=== PATIENT | male | born 1995 | race Caucasian/White ===

== ENCOUNTER 2019-06-06 05:15 | Emergency (ER) | payer SELFPAY ==
[~2019-06-06] VITALS: Ht 200 cm; Wt 84.8 kg
[2019-06-06] MEDS ORDERED: CEPH-507 PO (05:50)
--- NOTE | 2019-06-06 05:51 | ED Cough/URI ---
General Chief Complaint: Cough/Cold/Flu Symptoms Stated Complaint: COUGH Nursing Triage Note: pt states 2 days of cough, pt has not takenany medicaiton otc Sepsis Screen: No Definite Risk History of Present Illness Date Seen by Provider: Jun 06, 2019 Time Seen by Provider: 05:30 Initial Comments Patient is here with cough for the last 48 hours intermittent fever and chills no chest pain some purulent sputum no sore throat and earache some headache no nausea vomiting diarrhea Timing/Duration: constant, week Severity/Quality: moderate Prior Episodes/Possible Cause: illness exposure Associated Symptoms: cough, fever/chills, headache, sore throat Allergies and Home Medications Patient Home Medication List Home Medication List Reviewed: Yes Review of Systems Review of Systems Constitutional: chills, fever EENTM: hoarseness, nose congestion, throat pain; No ear pain Respiratory: cough; No short of breath, No wheezing Cardiovascular: no symptoms reported Gastrointestinal: no symptoms reported Skin: no symptoms reported, rash Past Noilpwq-Tftlhb-Wqedwy Hx Past Med/Social Hx: Reviewed Nursing Past Med/Soc Hx Patient Social History Alcohol Use: Occasionally Uses Recreational Drug Use: Yes Drug of Choice: marijuana Smoking Status: Current Everyday Smoker 2nd Hand Smoke Exposure: No Recent Foreign Travel: No Contact w/Someone Who Travel: No Recent Infectious Disease Expo: No Recent Hopitalizations: No Physical Abuse: No Sexual Abuse: No Mistreated: No Fear: No Seasonal Allergies Seasonal Allergies: No Past Medical History Surgeries: No Respiratory: No Cardiac: No Neurological: No Genitourinary: No Gastrointestinal: No Musculoskeletal: No Endocrine: No HEENT: No Cancer: No Psychosocial: No Integumentary: No Blood Disorders: No Physical Exam Vital Signs - First Documented 06/06/19 05:25 Temp 36.3 Pulse 88 Resp 16 B/P (MAP) 115/80 (92) Capillary Refill : Less Than 3 Seconds Height: '" Weight: lbs. oz. kg; 21.00 BMI Method: General Appearance: WD/WN, no apparent distress HEENT: PERRL/EOMI, TMs normal, pharynx normal Neck: non-tender, normal inspection Respiratory: lungs clear, normal breath sounds, no respiratory distress Cardiovascular: regular rate, rhythm, no murmur Neurologic/Psychiatric: normal mood/affect, oriented x 3 Progress/Results/Core Measures Suspected Sepsis Recent Fever Within 48 Hours: No Infection Criteria Present: None New/Unexplained Altered Menta: No Sepsis Screen: No Definite Risk SIRS Temperature: Pulse: 88 Respiratory Rate: 16 Blood Pressure 115 /80 Mean: 92 Results/Orders Vital Signs/I&O 06/06/19 05:25 Temp 36.3 Pulse 88 Resp 16 B/P (MAP) 115/80 (92) Capillary Refill : Less Than 3 Seconds Blood Pressure Mean: 92 POS Departure Impression Primary Impression: Upper respiratory infection Qualified Codes: J06.9 - Acute upper respiratory infection, unspecified Disposition: HOME, SELF-CARE Condition: Stable Departure-Patient Inst. Referrals: NO,LOCAL PHYSICIAN (PCP) Primary Care Physician Patient Instructions: Bacterial Upper Respiratory Infection, Adult (DC) Scripts Cephalexin (Keflex) 500 Mg Capsule 500 MG PO QID, #40 CAP Prov: JONATHAN LAZO JR, MD 06/06/19 Work/School Note: Family Work Note Patient Received Medical Care In the Em ergency Department On: Jun 06, 2019 Patient Will Be Able to Return to Work/School On: Jun 07, 2019 Patient Restrictions: Off 24 hours JONATHAN LAZO JR, MD Jun 06, 2019 05:51 POS
[2019-06-06 05:53] VITALS: BP 115/80
--- OUTSIDE RECORDS SUMMARY | 2019-07-01 17:39 | XMS REPORT | Continuity of Care Document ---
Author Organization Unknown Address Unknown Phone Unavailable Allergies There is no data. Medications There is no data. Problems There is no data. Procedures There is no data. Results There is no data. Encounters ACCT No. Visit Date/Time Discharge Status Pt. Type Provider Facility Loc./Unit Complaint [id number] 04/27/2019 11:15:00 04/27/2019 23:59: 59 [facility] [id number] 06/06/2019 05:19:00 019 05:53:00 DIS Emergency CLIFTON EGAN, JONATHAN Silva [facility] ER FS COUGH
== END 2019-06-06 05:53 | disposition home or self-care (01) ==
LOC: ER FS 05:19
DX: J06.9 Acute upper respiratory infection, unspecified (principal); F17.200 Nicotine dependence, unspecified, uncomplicated
CPT/HCPCS: 99282

== ENCOUNTER 2019-07-24 05:25 | Emergency (ER) | payer SELFPAY ==
[~2019-07-24] VITALS: Ht 204.2 cm; Wt 77.9 kg
[~2019-07-24 05:25] MED LIST: CEPH-507 PO
--- NOTE | 2019-07-24 05:57 | ED Cough/URI ---
General Chief Complaint: Cough/Cold/Flu Symptoms Stated Complaint: SINUS PROBLEMS Nursing Triage Note: Patient states that he has a lot of sinus drainage and believes he has a sinus infection. Patient reports having a productive cough. He states that his mucus is green in color. Patient did have some episodes of vomiting last night. Sepsis Screen: No Definite Risk Source: patient Exam Limitations: no limitations History of Present Illness Date Seen by Provider: Jul 24, 2019 Time Seen by Provider: 05:15 Initial Comments 23 yr old male presents with URI cough coryza for the past two days. Pt had also had NV but was medically stable on exam. No obvious fever and no muscle aches. Pt has no CV PUL GI or Renal dx. Pt gave informed consent for eval and asked for a work release for today. Timing/Duration: yesterday Severity/Quality: moderate, productive cough, sputum Prior Episodes/Possible Cause: occasional episodes, illness exposure, smoke exposure Modifying Factors: Improves With Activity, Improves With Coughing Associated Symptoms: cough, facial pain, sore throat Allergies and Home Medications Allergies Coded Allergies: No Known Drug Allergies (Unverified , 07/24/19) Home Medications Cephalexin 500 Mg Capsule, 500 MG PO QID Prescribed by: JONATHAN LAZO on 06/06/19 0550 Cephalexin 500 Mg Capsule, 500 MG PO QID Prescribed by: CLAUDIA MCCOY on 07/24/19 0604 Patient Home Medication List Home Medication List Reviewed: Yes Review of Systems Review of Systems Constitutional: chills, weakness EENTM: nose congestion, nose pain, throat pain, other (sinus congestion) Respiratory: cough Cardiovascular: no symptoms reported Gastrointestinal: no symptoms reported Genitourinary: no symptoms reported Musculoskeletal: no symptoms reported Skin: no symptoms reported Psychiatric/Neurological: Anxiety Hematologic/Lymphatic: No Symptoms Reported Immunological/Allergic: no symptoms reported Past Kgjnjpc-Xyaydj-Mhtydh Hx Patient Social History Alcohol Use: Denies Use Recreational Drug Use: Yes Drug of Choice: Marijuana Smoking Status: Current Everyday Smoker 2nd Hand Smoke Exposure: No Recent Foreign Travel: No Contact w/Someone Who Travel: No Recent Infectious Disease Expo: No Recent Hopitalizations: No Physical Abuse: No Sexual Abuse: No Mistreated: No Fear: No Seasonal Allergies Seasonal Allergies: No Past Medical History Surgeries: No Respiratory: No Cardiac: No Neurological: No Genitourinary: No Gastrointestinal: No Musculoskeletal: No Endocrine: No HEENT: No Cancer: No Psychosocial: No Integumentary: No Blood Disorders: No Family Medical History Reviewed Nursing Family Hx Physical Exam Vital Signs - First Documented Capillary Refill : Less Than 3 Seconds Height: '" Weight: lbs. oz. kg; 18.00 BMI Method: General Appearance: WD/WN, moderate distress, thin Eyes: Bilateral Eye Normal Inspection, Bilateral Eye PERRL, Bilateral Eye EOMI HEENT: PERRL/EOMI, TMs normal, pharyngeal erythema (with post nasal drip and sinus fullness) Neck: non-tender, full range of motion, supple, normal inspection Respiratory: chest non-tender, lungs clear, normal breath sounds, no respiratory distress, no accessory muscle use, other (upper airway mucous and cough) Cardiovascular: regular rate, rhythm, no edema, no gallop, no JVD, no murmur Gastrointestinal: normal bowel sounds, non tender, soft, no organomegaly, no pulsatile mass Extremities: normal range of motion, non-tender, normal inspection, no pedal edema, no calf tenderness Neurologic/Psychiatric: drapery hemmer automatic II-XII nml as tested, no motor/sensory deficits, alert, normal mood/affect, oriented x 3 Skin: normal color, warm/dry Lymphatic: no adenopathy Progress/Results/Core Measures Suspected Sepsis Recent Fever Within 48 Hours: No Infection Criteria Present: Suspected New Infection New/Unexplained Altered Menta: No Sepsis Screen: No Definite Risk SIRS Temperature: Pulse: 69 Respiratory Rate: 20 Blood Pressure 116 /78 Mean: 91 Results/Orders Vital Signs/I&O 07/24/19 07/24/19 05:29 05:29 Temp 36.2 Pulse 69 Resp 20 B/P (MAP) 116/78 (91) Pulse Ox 98 O2 Delivery Room Air Room Air Capillary Refill : Less Than 3 Seconds Blood Pressure Mean: 91 Departure Impression Primary Impression: Upper respiratory infection Additional Impression: Sinusitis, acute maxillary Disposition: HOME, SELF-CARE Condition: Stable Departure-Patient Inst. Decision time for Depature: 06:01 Referrals: NO,LOCAL PHYSICIAN (PCP) Primary Care Physician Patient Instructions: Bacterial Upper Respiratory Infection, Adult, Sinusitis in Adults Add. Discharge Instructions: Pt with URI and sinusitis and will start on Keflex 500 qid and fluids and rest. No work today and follow up with primary care in [place] All discharge instructions reviewed with patient and/or family. Voiced understanding. Scripts Cephalexin (Keflex) 500 Mg Capsule 500 MG PO QID for sinusitis for 15 Days, #60 CAP Prov: CLAUDIA MCCOY DO 07/24/19 Work/School Note: Work Release Form Date Seen in the Emergency Department: Jul 24, 2019 Return to Work: Jul 25, 2019 Other Restrictions Listed Below: No work [id number] and may return to work on [id number]. Follow up PCP Pt has medical excuse for no work for today CLAUDIA MCCOY DO Jul 24, 2019 05:57
[2019-07-24] MEDS ORDERED: CEPH-507 PO (06:04)
[2019-07-24 06:11] VITALS: BP 116/78
== END 2019-07-24 06:11 | disposition home or self-care (01) ==
LOC: EDUNIT# 05:25 → ER FS 05:27
DX: J01.00 Acute maxillary sinusitis, unspecified (principal); F17.200 Nicotine dependence, unspecified, uncomplicated
CPT/HCPCS: 99282